=== PATIENT | female | born 1995 ===

== ENCOUNTER 2017-06-03 02:14 | Inpatient (IN) | payer OTHER ==
[~2017-06-03] VITALS: Ht 157.5 cm; Wt 91.6 kg
[2017-06-03] MEDS ORDERED: INFED50 MG/ML IJ (03:15)
== END 2017-06-05 12:08 | disposition home or self-care (01) | DRG 775 ==
LOC: OB/GYN 02:14 → LDR 02:14 → OB/GYN 12:52
PROC: 0KQM0ZZ Repair Perineum Muscle, Open Approach (ICD-10-PCS; principal; 2017-06-03)
PROC: 10E0XZZ Delivery of Products of Conception, External Approach (ICD-10-PCS; 2017-06-03)
PROC: 4A1HXCZ Monitoring of Products of Conception, Cardiac Rate, External Approach (ICD-10-PCS; 2017-06-03)
PROC: 4A033R1 Measurement of Arterial Saturation, Peripheral, Percutaneous Approach (ICD-10-PCS; 2017-06-03)
DX: O70.1 Second degree perineal laceration during delivery (principal); Z37.0 Single live birth; O48.0 Post-term pregnancy; Z3A.40 40 weeks gestation of pregnancy

== ENCOUNTER → 2018-10-31 | Emergency (ER) | payer OTHER ==
[~2018-10-31] VITALS: Ht 157.5 cm; Wt 87.1 kg
[~2018-10-31] MED LIST: INFED50 MG/ML IJ; MUCINEX DM ER1 EAC1 PO; PROMETH-CODEIN 65 ML PO; SYMBICORT 16010.2 GM IH; ZITHROMAX500 MG PO
== END | disposition home or self-care (01) ==
LOC: ER 08:01
DX: B96.0 Mycoplasma pneumoniae [M. pneumoniae] as the cause of diseases classified elsewhere (principal); J06.9 Acute upper respiratory infection, unspecified

== ENCOUNTER 2018-11-01 07:23 | Emergency (ER) | payer OTHER ==
[~2018-11-01] VITALS: Ht 157.5 cm; Wt 84.8 kg
== END 2018-11-01 14:32 | disposition home or self-care (01) ==
LOC: ER 07:23
DX: R10.13 Epigastric pain (principal); R10.11 Right upper quadrant pain

== ENCOUNTER 2018-11-18 07:00 | Day surgery (SDC) | payer OTHER ==
[~2018-11-18] VITALS: Ht 157.5 cm; Wt 87.1 kg
[2018-11-18] MEDS ORDERED: TRAMADOL HCL50 MG PO (14:35)
[2018-11-18] MEDS ORDERED: POLY119PG PO (14:35)
[2018-11-18] MEDS ORDERED: SURFAK240 M1 PO (14:36)
== END 2018-11-18 13:00 | disposition home or self-care (01) ==
LOC: CIR.AMB 07:00 → ER 07:54 → SURH 07:54 → EDSTATUS 12:00 → CIR.AMB 13:00 → SURH 19:04
DX: K80.10 Calculus of gallbladder with chronic cholecystitis without obstruction (principal); K43.9 Ventral hernia without obstruction or gangrene; K42.9 Umbilical hernia without obstruction or gangrene

== ENCOUNTER 2020-07-10 10:10 | Emergency (ER) | payer OTHER ==
[~2020-07-10] VITALS: Ht 157.5 cm; Wt 94.3 kg
[~2020-07-10 10:10] MED LIST changes: +POLY119PG PO; +SURFAK240 M1 PO; +TRAMADOL HCL50 MG PO
[2020-07-10] MEDS ORDERED: ZYRTEC10 M3 (10:19)
== END 2020-07-10 13:00 | disposition home or self-care (01) ==
LOC: ER 10:10
DX: R07.89 Other chest pain (principal); F41.8 Other specified anxiety disorders

== ENCOUNTER 2021-04-11 19:25 | Emergency (ER) | payer OTHER ==
[~2021-04-11] VITALS: Ht 157.5 cm; Wt 101.6 kg
[~2021-04-11 19:25] MED LIST changes: +ZYRTEC10 M3
[2021-04-11] MEDS ORDERED: CIPRO500 MG PO (23:25)
[2021-04-11] MEDS ORDERED: NYSTATIN-TRIAMC15 GM TOP (23:28)
== END 2021-04-11 23:50 | disposition home or self-care (01) ==
LOC: ER 19:25
DX: O23.91 Unspecified genitourinary tract infection in pregnancy, first trimester (principal); Z3A.00 Weeks of gestation of pregnancy not specified; N30.90 Cystitis, unspecified without hematuria; Z32.01 Encounter for pregnancy test, result positive